=== PATIENT | male | born 1995 | race Caucasian/White ===

== ENCOUNTER 2017-03-26 11:16 | Emergency (ER) | payer OTHER ==
[2017-03-26] MEDS ORDERED: HYDROCODONE/ACETAMINOPHEN 5-325 MG TABLET PO ONE (11:56)
--- NOTE | 2017-03-26 11:59 | ER Document Report ---
HPI - HPI Patient complains to provider of: Knee injury Onset: Just prior to arrival Onset/Duration: Sudden Quality of pain: Sharp Pain Level: 3 Context: States she was standing in a ditch weed eating, patient states that he slid in his left knee twisted and felt like it dislocated and then he was able to feel it go back into place. 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 Patient complains of left knee joint pain. Associated Symptoms: Other - Knee joint pain Exacerbated by: Movement Relieved by: Denies Similar symptoms previously: Yes Recently seen / treated by doctor: No - ROS ROS below otherwise negative: Yes Systems Reviewed and Negative: Yes All other systems reviewed and negative - CONSTITUTIONAL Constitutional: DENIES: Fever - NEURO Neurology: DENIES: Weakness - CARDIOVASCULAR Cardiovascular: DENIES: Chest pain - GASTROINTESTINAL Gastrointestinal: DENIES: Nausea - MUSCULOSKELETAL Musculoskeletal: REPORTS: Extremity pain - DERM Skin Color: Normal Skin Problems: None Past Medical History - General Information source: Patient - Social History Smoking Status: Never Smoker Chew tobacco use (# tins/day): No Frequency of alcohol use: None Drug Abuse: Marijuana Occupation: [employer] Family History: Reviewed & Not Pertinent - Medical History Medical History: Negative Renal/ Medical History: Denies: Hx Peritoneal Dialysis Past Surgical History: Reports: Hx Orthopedic Surgery Vertical Provider Document - CONSTITUTIONAL Agree With Documented VS: Yes Exam Limitations: No Limitations General Appearance: WD/WN, No Apparent Distress - INFECTION CONTROL TRAVEL OUTSIDE OF THE [place] IN LAST 30 DAYS: No - HEENT HEENT: Atraumatic, Normocephalic - NECK Neck: Normal Inspection - RESPIRATORY Respiratory: No Respiratory Distress - CARDIOVASCULAR Pulses: Normal: Dorsalis pedis - MUSCULOSKELETAL/EXTREMETIES Musculoskeletal/Extremeties: MAEW, Tender - Generalized left knee joint tenderness, tenderness worse along medial aspect of left knee joint. No dislocation, no deformity, no obvious effusion, No Edema. negative: Eccymosis Notes: No laxity with varus or valgus maneuvers. - NEURO Level of Consciousness: Awake, Alert, Appropriate Motor/Sensory: No Motor Deficit - DERM Integumentary: Warm, Dry, No Rash Course - Diagnostic Test Radiology reviewed: Reports reviewed Procedures - Immobilization Left Knee Pre-Proc Neuro Vasc Exam: Normal Immobilizer type: Knee immobilizer Performed by: PCT Post-Proc Neuro Vasc Exam: Normal Alignment checked and good: Yes Discharge - Discharge Clinical Impression: Left knee sprain Qualifiers: Encounter type: initial encounter Involved ligament of knee: unspecified ligament Qualified Code(s): S83.92XA - Sprain of unspecified site of left knee, initial encounter Condition: Stable Disposition: HOME, SELF-CARE Instructions: Knee Immobilizing Splint ([facility]), Sprained Knee ([facility]), Ice & Elevation ([facility]), Oral Narcotic Medication ([facility]), Use of Crutches ([facility]) Additional Instructions: Return immediately for any new or worsening symptoms Followup with your primary care provider, call tomorrow to make a followup appointment Follow-up with orthopedic doctor for any continued pain or problems Weight bearing as tolerated Prescriptions: Hydrocodone/Acetaminophen [Vallecitos 5-325 Tablet] 1 each PO Q4 PRN #15 tablet PRN Reason: Forms: Return to Work Referrals: [facility] [Provider Group] - Follow up in 3-5 days
--- NOTE | 2017-03-26 12:54 | RADIOLOGY REPORT (SQ) ---
EXAM DESCRIPTION: KNEE LEFT 3 VIEWS COMPLETED DATE/TIME: 03/26/2017 12:44 pm REASON FOR STUDY: fall, felt knee dislocate, hx MCL injury in past COMPARISON: None. NUMBER OF VIEWS: Four views. TECHNIQUE: AP, lateral, and both oblique radiographic images acquired of the left knee. LIMITATIONS: None. FINDINGS: MINERALIZATION: Normal. BONES: No acute fracture or dislocation. No worrisome bone lesions. JOINT: No effusion. SOFT TISSUES: No soft tissue swelling. No radio-opaque foreign body. OTHER: No other significant finding. IMPRESSION: NEGATIVE STUDY OF THE LEFT KNEE. NO RADIOGRAPHIC EVIDENCE OF ACUTE INJURY. TECHNICAL DOCUMENTATION: JOB ID: [id number] [employer]- All Rights Reserved
[2017-03-26 13:19] VITALS: BP 149/82
== END 2017-03-26 13:05 | disposition home or self-care (01) ==
LOC: ER 11:16
DX: S83.92XA Sprain of unspecified site of left knee, initial encounter (principal); X50.1XXA Overexertion from prolonged static or awkward postures, initial encounter; Y93.H9 Activity, other involving exterior property and land maintenance, building and construction; Y99.0 Civilian activity done for income or pay; Z98.890 Other specified postprocedural states
CPT/HCPCS: 99283; 73562; L1830

== ENCOUNTER 2018-03-23 19:30 | Emergency (ER) | payer OTHER ==
[2018-03-23 19:41] VITALS: BP 129/90
--- NOTE | 2018-03-23 20:31 | ER Document Report ---
ED Skin Rash/Insect Bite/Abscs - General Chief Complaint: Infected tattoo R upper arm Stated Complaint: SKIN PROBLEM Time Seen by Provider: 03/23/18 20:09 Mode of Arrival: Ambulatory Information source: Parent TRAVEL OUTSIDE OF THE [place] IN LAST 30 DAYS: No - HPI Notes: 23-year-old male presents to the emergency department for evaluation of possible infection status post receiving a tattoo. He reports that he had a tattoo about a week ago and noticed the bumps and the pain a few days afterwards. Patient reports that area to the right lateral shoulder is painful and he reports that there are bumps like whiteheads. Patient reports that the area is painful and does not itch. He denies any decreased range of motion at the shoulder. He denies any fever, chest pain, shortness of breath, abdominal pain, nausea, vomiting, diarrhea, or dysuria. - Related Data Allergies/Adverse Reactions: No Known Allergies Allergy (Unverified 03/23/18 19:36) Past Medical History - General Information source: Patient - Social History Smoking Status: Never Smoker Chew tobacco use (# tins/day): No Frequency of alcohol use: None Drug Abuse: None Family History: Reviewed & Not Pertinent Patient has suicidal ideation: No Patient has homicidal ideation: No Renal/ Medical History: Denies: Hx Peritoneal Dialysis Past Surgical History: Reports: Hx Orthopedic Surgery Review of Systems - Review of Systems -: Yes All other systems reviewed and negative Physical Exam - Vital signs Vitals: Temp Pulse Resp BP Pulse Ox 98.8 F 90 20 129/90 H 97 03/23/18 19:40 03/23/18 19:40 03/23/18 19:40 03/23/18 19:40 03/23/18 19:40 - Notes Notes: PHYSICAL EXAMINATION: GENERAL: Well-appearing, well-nourished and in no acute distress. HEAD: Atraumatic, normocephalic. Musculoskeletal: Normal range of motion, no pitting or edema. No cyanosis. Strong radial pulse with brisk capillary refill. Light sensation intact. NEUROLOGICAL: Normal gait, balance, speech, and facial symmetry. PSYCH: Normal mood, normal affect. SKIN: There are multiple pustules with erythema that are both tender and hot to the touch. No abscess or fluctuance. No lymphangitis. Warm, Dry, normal turgor, no rashes or lesions noted. Course - Re-evaluation Re-evalutation: 03/23/18 20:44 Consistent with cellulitis with no abscess. Patient was nontoxic or septic appearing in no acute or respiratory distress. Patient was afebrile and not hypoxic. No evidence of lymphangitis or life-threatening illness. The likelihood of other entities in the differential is insufficient to justify any further testing for them. I discussed care plan at length with patient. Any and all questions were answered. Discharged home with clindamycin and Motrin. Advised patient to follow-up with PCP and take medications as instructed. I also advised him to return immediately to the emergency department for any new, worsening, or concerning symptoms as discussed. He understands and agrees with plan. - Vital Signs Vital signs: Temp Pulse Resp BP Pulse Ox 98.8 F 90 20 129/90 H 97 03/23/18 19:40 03/23/18 19:40 03/23/18 19:40 03/23/18 19:40 03/23/18 19:40 Discharge - Discharge Clinical Impression: Cellulitis of right upper extremity Clinical Impression: (Ruled Out): Cellulitis, right shoulder Condition: Good Instructions: Cellulitis ([facility]), Family Physicians / Practices Additional Instructions: Please follow-up with PCP and take medications as instructed. Return immediately to the emergency department for any new, worsening, or concerning symptoms as discussed. Prescriptions: Clindamycin HCl 300 mg PO QID #40 capsule Ibuprofen [Motrin 800 mg Tablet] 800 mg PO Q8H PRN #30 tab PRN Reason:
== END 2018-03-23 20:43 | disposition home or self-care (01) ==
LOC: ER 19:30
DX: L03.113 Cellulitis of right upper limb (principal)
CPT/HCPCS: 99283

== ENCOUNTER 2020-01-26 18:34 | Emergency (ER) | payer SELFPAY ==
--- NOTE | 2020-01-26 18:52 | ER Document Report ---
ED Medical Screen (RME) - General Chief Complaint: Hand Swelling Stated Complaint: POSSIBLE ABSCESS/LEFT INDEX FINGER Time Seen by Provider: 01/26/20 18:47 TRAVEL OUTSIDE OF THE [place] IN LAST 30 DAYS: No - HPI Notes: 01/26/20 18:49 24-year-old male presents emergency room for evaluation of his left second phalanges with erythema, swelling, tenderness to palpation that started approximately 3.5 hours ago after he was picking at a callus on the volar aspect of his second phalange, proximal to the PIP. Denies any history of MRSA. No [id number] medications have been tried. Pain is 3 out of 5, throbbing and sharp. No [id number]-[id number] medications have been tried. Has not tried any heating or icing I have greeted and performed a rapid initial assessment of this patient. A comprehensive ED assessment and evaluation of the patient, analysis of test results and completion of the medical decision making process will be conducted by additional ED providers. PHYSICAL EXAMINATION: GENERAL: Well-appearing, well-nourished and in no acute distress. CV: s1, s2 regular LUNGS: No respiratory distress Musculoskeletal: Normal range of motion N SKIN: Warm, Dry, normal turgor, no rashes or lesions noted. left second phalange with erythema, swelling, tenderness to palpation. cap refill <3 seconds. - Related Data Allergies/Adverse Reactions: No Known Allergies Allergy (Unverified 03/23/18 19:36) Past Medical History - Social History Chew tobacco use (# tins/day): Yes Renal/ Medical History: Denies: Hx Peritoneal Dialysis Past Surgical History: Reports: Hx Orthopedic Surgery Physical Exam - Vital signs Vitals: Temp Pulse Resp BP Pulse Ox 98.2 F 108 H 16 141/102 H 98 01/26/20 18:37 01/26/20 18:37 01/26/20 18:37 01/26/20 18:37 01/26/20 18:37 Course - Vital Signs Vital signs: Temp Pulse Resp BP Pulse Ox 98.2 F 108 H 16 141/102 H 98 01/26/20 18:37 01/26/20 18:37 01/26/20 18:37 01/26/20 18:37 01/26/20 18:37
[2020-01-26 19:34] LABS: ABSOLUTE BASOPHILS # (AUTO) 0.1 10^3/uL (0.0-0.2); ABSOLUTE EOSINOPHILS # (AUTO) 0.4 10^3/uL (0.0-0.6); ABSOLUTE LYMPHOCYTES (AUTO) 2.8 10^3/uL (0.5-4.7); ABSOLUTE MONOCYTES (AUTO) 1.1 10^3/uL (0.1-1.4); ABSOLUTE NEUT (AUTO) 9.5 10^3/uL (1.7-8.2); BASOPHILS % (AUTO) 0.5 % (0-2); EOSINOPHILS % (AUTO) 2.7 % (0-6); HEMATOCRIT 49.9 % (37.9-51.0); HEMOGLOBIN 17.1 g/dL (13.5-17.0); LYMPHOCYTES % (AUTO) 20.1 % (13-45); MEAN CORPUSCULAR HEMOGLOBIN 29.4 pg (27.0-33.4); MEAN CORPUSCULAR HGB CONC 34.2 g/dL (32.0-36.0); MEAN CORPUSCULAR VOLUME 86 fl (80-97); MONOCYTES % (AUTO) 8.2 % (3-13); PLATELET COUNT 260 10^3/uL (150-450); RED BLOOD COUNT 5.81 10^6/uL (4.35-5.55); RED CELL DISTRIBUTION WIDTH 13.5 % (11.5-14.0); SEGMENTED NEUTROPHILS % (AUTO) 68.5 % (42-78); TOTAL CELLS COUNTED % (AUTO) 100 %; WHITE BLOOD COUNT 13.9 10^3/uL (4.0-10.5)
[2020-01-26 19:51] LABS: ALKALINE PHOSPHATASE 66 U/L (38-126); ANION GAP 13 (5-19); ASPARTATE AMINO TRANSFERASE 24 U/L (17-59); BILIRUBIN,DIRECT 0.3 mg/dL (0.0-0.4); BILIRUBIN,TOTAL 0.5 mg/dL (0.2-1.3); BLOOD UREA NITROGEN 13 mg/dL (7-20); CALCIUM 10.4 mg/dL (8.4-10.2); CARBON DIOXIDE 22 mmol/L (22-30); CHLORIDE 105 mmol/L (98-107); GLUCOSE 119 mg/dL (75-110); POTASSIUM 3.7 mmol/L (3.6-5.0); TOTAL PROTEIN 8.6 g/dL (6.3-8.2)
--- NOTE | 2020-01-26 20:00 | RADIOLOGY REPORT (SQ) ---
EXAM DESCRIPTION: FINGER LEFT COMPLETED DATE/TIME: 01/26/2020 7:34 pm REASON FOR STUDY: 2nd digit with erythema/swelling COMPARISON: None. NUMBER OF VIEWS: Three views. TECHNIQUE: AP, lateral, and oblique images acquired of the left second finger. LIMITATIONS: None. FINDINGS: MINERALIZATION: Normal. BONES: No acute fracture or dislocation. No worrisome bone lesions. SOFT TISSUES: Soft tissue swelling. OTHER: No other significant finding. IMPRESSION: Soft tissue swelling. No fracture. TECHNICAL DOCUMENTATION: JOB ID: [id number] [email or web address]- All Rights Reserved Reading location - IP/workstation name: [email or web address]
[2020-01-26] MEDS ORDERED: CEFTRIAXONE INJ 1000 MG VIAL IM ONE (20:24)
[2020-01-26] MEDS ORDERED: SULFAMETHOXAZOLE/TRIMETHOPRIM 800-160 MG TABLET PO ONE (20:24)
[2020-01-26] MEDS ORDERED: LIDOCAINE 1% INJ-PF (10 MG/ML) 30 ML SDV INJ ONE (20:24)
[2020-01-26] MEDS ORDERED: PROMETHAZINE HCL 25 MG TABLET PO ONE (20:25)
[2020-01-26] MEDS ORDERED: OXYCODONE-ACETAMINOPHEN 5-325 MG TABLET PO ONE (20:25)
--- NOTE | 2020-01-26 20:27 | ER Document Report ---
ED Extremity Problem, Upper - General Chief Complaint: Abscess Stated Complaint: POSSIBLE ABSCESS/LEFT INDEX FINGER Time Seen by Provider: 01/26/20 18:47 Notes: Patient is a 24-year-old male that comes emergency department for chief complaint of pain, redness, and swelling to the left index finger. He states that he has been picking at a callus over the palmar aspect of the index finger near the PIP and just proximal to this, he indicated the area, he states that suddenly at about 3 PM the area started becoming red, swollen, tender. He s tates he has had fairly rapid swelling and redness since that time. Patient did trace the area over his finger and hand with a pen. He states surprisingly the redness is actually started receding and it is not as spread out as it was before, however he still has swelling and pain to the area. He denies itching to the area, he denies any other symptoms. He is up-to-date on his tetanus. He denies history of recreational drugs. He denies any allergies or daily medications. His only reported medical history is knee surgery. TRAVEL OUTSIDE OF THE [place] IN LAST 30 DAYS: No - Related Data Allergies/Adverse Reactions: No Known Allergies Allergy (Unverified 03/23/18 19:36) Past Medical History - General Information source: Patient - Social History Smoking Status: Never Smoker Chew tobacco use (# tins/day): Yes Frequency of alcohol use: None Drug Abuse: None Lives with: Family Family History: Reviewed & Not Pertinent Patient has suicidal ideation: No Patient has homicidal ideation: No - Medical History Medical History: Negative Renal/ Medical History: Denies: Hx Peritoneal Dialysis Past Surgical History: Reports: Hx Orthopedic Surgery - Immunizations Immunizations up to date: Yes Hx Diphtheria, Pertussis, Tetanus Vaccination: Yes Review of Systems - Review of Systems Constitutional: No symptoms reported EENT: No symptoms reported Cardiovascular: No symptoms reported Respiratory: No symptoms reported Gastrointestinal: No symptoms reported Genitourinary: No symptoms reported Male Genitourinary: No symptoms reported Musculoskeletal: See HPI Skin: See HPI Hematologic/Lymphatic: No symptoms reported Neurological/Psychological: No symptoms reported Physical Exam - Vital signs Vitals: Temp Pulse Resp BP Pulse Ox 98.2 F 108 H 16 141/102 H 98 01/26/20 18:37 01/26/20 18:37 01/26/20 18:37 01/26/20 18:37 01/26/20 18:37 - Notes Notes: GENERAL: Alert, interacts well. No acute distress. HEAD: Normocephalic, atraumatic. EYES: Pupils equal, round, and reactive to light. Extraocular movements intact. ENT: Oral mucosa moist, tongue midline. Oropharynx unremarkable. Airway patent. LUNGS: Clear to auscultation bilaterally, no wheezes, rales, or rhonchi. No respiratory distress. HEART: Regular rate and rhythm. No murmur ABDOMEN: Soft, non-tender. Non-distended. EXTREMITIES: Left index finger with an area that appears to be picked skin which healed just proximal to the DIP over the palmar aspect. There is swelling extending from behind the PIP of the finger back towards the MCP joint and slightly over the palm of the hand. There is erythema and tenderness over this area. Patient can perform flexion and extension of the finger but flexion is painful and slightly limited. Capillary refill and sensation intact. Remaining hand exam is norm normal wrist, forearm, elbow, shoulder exam. Otherwise unremarkable extremities. BACK: no cervical, thoracic, lumbar midline tenderness. No saddle anesthesia, normal distal neurovascular exam. Moves all extremities in full range of motion. NEUROLOGICAL: Alert and oriented x3. Normal speech. Cranial nerves II through XII grossly intact. PSYCH: Normal affect, normal mood. SKIN: Warm, dry, normal turgor. No rashes or lesions noted. Course - Re-evaluation Re-evalutation: Patient does have mild leukocytosis with elevation of neutrophils but no bandemia. No fever. He is not tachycardic on my exam. He does have what appears to be cellulitis without noted induration, fluctuance, or evidence of abscess. Patient will be medicated with antibiotics now and I will reevaluate him. Chemistry unremarkable without significant hyperglycemia, no acidosis. Patient was reevaluated. Approximately 30 minutes after receiving IM Rocephin and Bactrim patient started to have significant improvement. On reevaluation again the area has receded, the erythema has significantly improved, the swelling has significantly decreased. Patient is not complaining of pain to the area anymore. I do not see any evidence of bite, patient denies being bitten by anything. At this time I suspect strep cellulitis because of the rapid development and rapid improvement with antibiotics. Patient will be treated with Keflex and Bactrim, discussed care, precautions, follow-up, and strict return cautions. Patient states appreciation and agreement. - Vital Signs Vital signs: Temp Pulse Resp BP Pulse Ox 97.7 F 79 16 162/96 H 99 01/26/20 21:17 01/26/20 21:17 01/26/20 21:17 01/26/20 21:17 01/26/20 21:17 - Laboratory Result Diagrams: 01/26/20 19:05 01/26/20 19:05 Laboratory results interpreted by me: 01/26/20 01/26/20 19:05 19:05 WBC 13.9 H RBC 5.81 H Hgb 17.1 H Absolute Neuts (auto) 9.5 H Glucose 119 H Calcium 10.4 H Total Protein 8.6 H Discharge - Discharge Clinical Impression: Swelling of left index finger Cellulitis Qualifiers: Site of cellulitis: extremity Site of cellulitis of extremity: upper extremity Laterality: left Qualified Code(s): L03.114 - Cellulitis of left upper limb Condition: Stable Disposition: HOME, SELF-CARE Instructions: Oral Narcotic Medication ([facility]) Additional Instructions: Your evaluation is consistent with cellulitis, skin infection. You have been treated for this, complete treatment with the antibiotics as prescribed. I recommend that you use the hand as little as possible, elevate whenever possible. This should simply resolve. Follow-up with primary care. Return immediately if you worsen including spreading redness, increased swelling, developing fever, or any other concerning or worsening symptoms. Prescriptions: Sulfamethoxazole/Trimethoprim [Bactrim Ds Tablet] 1 each PO BID #14 tablet Cephalexin Monohydrate [Keflex 500 mg Capsule] 500 mg PO QID #28 capsule Forms: Elevated Blood Pressure
[2020-01-26 21:20] VITALS: BP 162/96
[2020-01-26] MEDS ORDERED: HYDROCODONE/ACETAMINOPHEN 5-325 MG (6 TAB/ER DISP) PO PRN (21:51)
== END 2020-01-26 23:00 | disposition home or self-care (01) ==
LOC: ER 18:34
DX: L03.114 Cellulitis of left upper limb (principal); M79.645 Pain in left finger(s); M79.89 Other specified soft tissue disorders; D72.829 Elevated white blood cell count, unspecified
CPT/HCPCS: 99283; 96372; 36415; 85025; 80053; 73140; J3490; J0696